=== PATIENT | female | born 1960 | race African-American/Black ===

== ENCOUNTER 2018-05-25 09:55 | Emergency (ER) | payer OTHER, MEDICAID ==
[~2018-05-25] VITALS: Ht 149.9 cm; Wt 86.0 kg
[~2018-05-25 09:55] MED LIST: ACTOS; MAXIDE; METFORMIN; PROZAC
[2018-05-25] MEDS ORDERED: IBUPROFEN 600MG TABLET PO ONE (11:00)
[2018-05-25] MEDS ORDERED: METHOCARBAMOL 500MG TABLET PO ONE (11:00)
[2018-05-25 12:29] VITALS: BP 168/98
== END 2018-05-25 12:31 | disposition home or self-care (01) ==
LOC: ER 09:55
DX: S22.31XA Fracture of one rib, right side, initial encounter for closed fracture (principal); I10 Essential (primary) hypertension; F32.9 Major depressive disorder, single episode, unspecified; F41.9 Anxiety disorder, unspecified; E11.9 Type 2 diabetes mellitus without complications; Z98.890 Other specified postprocedural states; Y93.B1 Activity, exercise machines primarily for muscle strengthening; Y92.89 Other specified places as the place of occurrence of the external cause
CPT/HCPCS: 71101; 99283

== ENCOUNTER 2019-01-18 09:48 | Emergency (ER) | payer OTHER, MEDICAID ==
[~2019-01-18] VITALS: Ht 149.9 cm; Wt 83.0 kg
[2019-01-18] MEDS ORDERED: ONDANSETRON 4MG ODT PO STA (10:30)
[2019-01-18] MEDS ORDERED: FAMOTIDINE 20MG TABLET PO ONE (10:30)
[2019-01-18] MEDS ORDERED: MAGNESIUM/ALUMINUM HYDROXIDE/SIMETHICONE 30ML UDC PO STA (10:30)
[2019-01-18 11:02] LABS: CLARITY URINE CLOUDY (CLEAR); COLOR URINE YELLOW (YELLOW); KETONES URINE NEGATIVE (NEGATIVE); LEUKOCYTE ESTERASE URINE 1+ (NEGATIVE); NITRITE URINE NEGATIVE (NEGATIVE); OCCULT BLOOD URINE NEGATIVE (NEGATIVE); PROTEIN URINE TRACE (NEGATIVE); SPECIFIC GRAVITY URINE 1.016 (1.005-1.030); UROBILINOGEN URINE 0.2 E.U./dL (0.2-1.0)
[2019-01-18] MEDS ORDERED: FLUCONAZOLE 50MG TABLET PO ONE (11:30)
[2019-01-18] MEDS ORDERED: CEPHALEXIN 250MG CAPSULE PO ONE (11:30)
[2019-01-18 12:00] LABS: BASOPHILS % 0.7 % (0.0-2.0); EOSINOPHILS % 1.8 % (0.0-5.0); HEMATOCRIT. 37.5 % (36.0-48.0); HEMOGLOBIN. 12.8 g/dL (12.0-16.0); LYMPHOCYTES % 47.3 % (20.0-50.0); MEAN CORPUSCULAR HEMOGLOBIN 30.3 pg (28.0-32.0); MEAN CORPUSCULAR VOLUME 88.8 fL (81.0-99.0); MEAN PLATELET VOLUME 8.3 fl (7.4-10.4); MONOCYTES % 5.1 % (2.0-8.0); NEUTROPHILS % 45.1 % (40.0-76.0); PLATELET 288 x1000/uL (130-400); RED BLOOD CELL COUNT 4.22 mill/uL (4.2-5.4); RED CELL DISTRIBUTION WIDTH 12.5 % (11.6-14.6)
[2019-01-18 12:08] LABS: CHLORIDE 101 mEq/L (98-107)
[2019-01-18 13:30] VITALS: BP 128/86
== END 2019-01-18 13:35 | disposition home or self-care (01) ==
LOC: ER 09:48
DX: N39.0 Urinary tract infection, site not specified (principal); B37.9 Candidiasis, unspecified; K21.9 Gastro-esophageal reflux disease without esophagitis; E11.9 Type 2 diabetes mellitus without complications; J44.9 Chronic obstructive pulmonary disease, unspecified; I10 Essential (primary) hypertension; F17.210 Nicotine dependence, cigarettes, uncomplicated; F41.9 Anxiety disorder, unspecified; Z98.890 Other specified postprocedural states; Z79.84 Long term (current) use of oral hypoglycemic drugs
CPT/HCPCS: 36415; 71045; 76700; 80053; 81003; 83690; 85025; 93005; 99284; Q0162

== ENCOUNTER 2020-04-07 06:44 | Emergency (ER) | payer OTHER, MEDICAID ==
[~2020-04-07] VITALS: Ht 149.9 cm; Wt 71.0 kg
[2020-04-07] MEDS ORDERED: SUCR1TAB PO (06:53)
[2020-04-07] MEDS ORDERED: DICY20TA11 PO (06:53)
[2020-04-07] MEDS ORDERED: SULF-288 PO (06:54)
[2020-04-07] MEDS ORDERED: MORPHINE SULFATE 4 MG/ML CPJ (NOT FOR IM USE) IV ONE (08:30)
[2020-04-07 08:51] LABS: BASOPHILS % 1.1 % (0.0-2.0); EOSINOPHILS % 2.3 % (0.0-5.0); HEMATOCRIT. 37.2 % (36.0-48.0); HEMOGLOBIN. 12.6 g/dL (12.0-16.0); LYMPHOCYTES % 45.8 % (20.0-50.0); MEAN CORPUSCULAR HEMOGLOBIN 30.1 pg (28.0-32.0); MEAN CORPUSCULAR VOLUME 88.9 fL (81.0-99.0); MEAN PLATELET VOLUME 8.8 fl (7.4-10.4); MONOCYTES % 7.7 % (2.0-8.0); NEUTROPHILS % 43.1 % (40.0-76.0); PLATELET 300 x1000/uL (130-400); RED BLOOD CELL COUNT 4.19 mill/uL (4.2-5.4); RED CELL DISTRIBUTION WIDTH 13.3 % (11.6-14.6)
[2020-04-07 08:53] LABS: CHLORIDE 100 mEq/L (98-107)
[2020-04-07 08:57] LABS: PROTHROMBIN TIME 10.8 sec (9.6-11.0)
[2020-04-07] MEDS ORDERED: T3 PO (10:02)
[2020-04-07 11:22] VITALS: BP 159/89
== END 2020-04-07 11:24 | disposition home or self-care (01) ==
LOC: ER 06:44
DX: R10.84 Generalized abdominal pain (principal); E11.9 Type 2 diabetes mellitus without complications; I10 Essential (primary) hypertension; J44.9 Chronic obstructive pulmonary disease, unspecified
CPT/HCPCS: 36415; 74176; 80053; 83690; 85025; 85610; 93005; 96374; 99285; J2270

== ENCOUNTER 2020-04-14 08:55 | Emergency (ER) | payer OTHER, MEDICAID ==
[~2020-04-14] VITALS: Ht 165.1 cm; Wt 72.6 kg
[~2020-04-14 08:55] MED LIST changes: +DICY20TA11 PO; +SUCR1TAB PO; +SULF-288 PO; +T3 PO
[2020-04-14] MEDS ORDERED: MAGNESIUM/ALUMINUM HYDROXIDE/SIMETHICONE 30ML UDC PO STA (09:13)
[2020-04-14] MEDS ORDERED: DICYCLOMINE 10 MG/5 ML ORAL SYR PO STA (09:13)
[2020-04-14] MEDS ORDERED: VISCOUS LIDOCAINE 2% 15 ML UDC PO STA (09:13)
[2020-04-14 09:37] LABS: CHLORIDE 97 mEq/L (98-107)
[2020-04-14 09:40] LABS: PROTHROMBIN TIME 10.5 sec (9.6-11.0)
[2020-04-14 09:44] LABS: BASOPHILS % 0.6 % (0.0-2.0); EOSINOPHILS % 1.1 % (0.0-5.0); HEMATOCRIT. 40.3 % (36.0-48.0); HEMOGLOBIN. 13.8 g/dL (12.0-16.0); LYMPHOCYTES % 55.3 % (20.0-50.0); MEAN CORPUSCULAR HEMOGLOBIN 30.4 pg (28.0-32.0); MEAN PLATELET VOLUME 8.8 fl (7.4-10.4); MONOCYTES % 5.6 % (2.0-8.0); NEUTROPHILS % 37.4 % (40.0-76.0); PLATELET 336 x1000/uL (130-400); RED BLOOD CELL COUNT 4.52 mill/uL (4.2-5.4); RED CELL DISTRIBUTION WIDTH 13.4 % (11.6-14.6)
[2020-04-14 10:00] LABS: CLARITY URINE CLEAR (CLEAR); COLOR URINE DARK YELLOW (YELLOW); KETONES URINE 1+ (NEGATIVE); LEUKOCYTE ESTERASE URINE NEGATIVE (NEGATIVE); NITRITE URINE NEGATIVE (NEGATIVE); OCCULT BLOOD URINE NEGATIVE (NEGATIVE); PH URINE 7.5 (4.5-8.0); PROTEIN URINE 4+ (NEGATIVE); SPECIFIC GRAVITY URINE 1.038 (1.005-1.030)
[2020-04-14] MEDS ORDERED: ACETAMINOPHEN WITH CODEINE 300/30MG TABLET PO ONE (10:30)
[2020-04-14 10:51] VITALS: BP 198/118
[2020-04-14] MEDS ORDERED: T3 PO (11:59)
== END 2020-04-14 12:25 | disposition home or self-care (01) ==
LOC: ER 08:55
DX: R10.13 Epigastric pain (principal); R10.11 Right upper quadrant pain; I10 Essential (primary) hypertension; E11.8 Type 2 diabetes mellitus with unspecified complications; K25.9 Gastric ulcer, unspecified as acute or chronic, without hemorrhage or perforation; N28.1 Cyst of kidney, acquired; Z79.4 Long term (current) use of insulin
CPT/HCPCS: 36415; 74021; 80053; 81003; 85025; 93005; 99285

== ENCOUNTER 2020-04-20 08:11 | Emergency (ER) | payer OTHER, MEDICAID ==
[~2020-04-20] VITALS: Ht 157.5 cm; Wt 64.0 kg
[2020-04-20] MEDS ORDERED: DICYCLOMINE 10 MG/5 ML ORAL SYR PO STA (09:33)
[2020-04-20] MEDS ORDERED: MAGNESIUM/ALUMINUM HYDROXIDE/SIMETHICONE 30ML UDC PO STA (09:33)
[2020-04-20] MEDS ORDERED: VISCOUS LIDOCAINE 2% 15 ML UDC PO STA (09:33)
[2020-04-20 10:16] LABS: BASOPHILS % 0.5 % (0.0-2.0); EOSINOPHILS % 0.6 % (0.0-5.0); HEMATOCRIT. 38.2 % (36.0-48.0); HEMOGLOBIN. 13.1 g/dL (12.0-16.0); LYMPHOCYTES % 52.9 % (20.0-50.0); MEAN CORPUSCULAR HEMOGLOBIN 30.4 pg (28.0-32.0); MEAN PLATELET VOLUME 8.6 fl (7.4-10.4); MONOCYTES % 5.7 % (2.0-8.0); NEUTROPHILS % 40.3 % (40.0-76.0); PLATELET 323 x1000/uL (130-400); RED CELL DISTRIBUTION WIDTH 13.5 % (11.6-14.6)
[2020-04-20 10:24] LABS: CHLORIDE 99 mEq/L (98-107)
[2020-04-20 10:26] LABS: PROTHROMBIN TIME 10.5 sec (9.6-11.0)
[2020-04-20] MEDS ORDERED: FAMOTIDINE 20MG/2ML VIAL IV ONE (11:15)
[2020-04-20] MEDS ORDERED: PANTOPRAZOLE SODIUM 40 MG/VIAL IV ONE (11:15)
[2020-04-20 11:18] LABS: CLARITY URINE CLEAR (CLEAR); COLOR URINE YELLOW (YELLOW); KETONES URINE NEGATIVE (NEGATIVE); LEUKOCYTE ESTERASE URINE NEGATIVE (NEGATIVE); NITRITE URINE NEGATIVE (NEGATIVE); OCCULT BLOOD URINE NEGATIVE (NEGATIVE); PH URINE 6.5 (4.5-8.0); PROTEIN URINE 3+ (NEGATIVE); SPECIFIC GRAVITY URINE 1.012 (1.005-1.030); UROBILINOGEN URINE 0.2 E.U./dL (0.2-1.0)
[2020-04-20] MEDS ORDERED: OMEP20CA14 MT (12:33)
[2020-04-20 13:01] VITALS: BP 174/95
== END 2020-04-20 13:02 | disposition home or self-care (01) ==
LOC: ER 08:22
DX: R10.11 Right upper quadrant pain (principal); F41.9 Anxiety disorder, unspecified; J44.9 Chronic obstructive pulmonary disease, unspecified; F32.9 Major depressive disorder, single episode, unspecified; E11.9 Type 2 diabetes mellitus without complications; K21.9 Gastro-esophageal reflux disease without esophagitis; I10 Essential (primary) hypertension; Z98.890 Other specified postprocedural states; Z79.899 Other long term (current) drug therapy
CPT/HCPCS: 36415; 76705; 80053; 81003; 83690; 85025; 85610; 93005; 96374; 99285; C9113

== ENCOUNTER 2020-05-08 21:29 | Emergency (ER) | payer OTHER, MEDICAID ==
[~2020-05-08] VITALS: Ht 165.1 cm; Wt 75.0 kg
[~2020-05-08 21:29] MED LIST changes: +OMEP20CA14 MT
[2020-05-08 22:31] LABS: BASOPHILS % 0.5 % (0.0-2.0); EOSINOPHILS % 1.1 % (0.0-5.0); HEMATOCRIT. 36.3 % (36.0-48.0); HEMOGLOBIN. 12.3 g/dL (12.0-16.0); LYMPHOCYTES % 55.8 % (20.0-50.0); MEAN CORPUSCULAR HEMOGLOBIN 30.2 pg (28.0-32.0); MEAN CORPUSCULAR VOLUME 89.1 fL (81.0-99.0); MEAN PLATELET VOLUME 7.9 fl (7.4-10.4); MONOCYTES % 7.5 % (2.0-8.0); NEUTROPHILS % 35.1 % (40.0-76.0); PLATELET 348 x1000/uL (130-400); RED BLOOD CELL COUNT 4.08 mill/uL (4.2-5.4); RED CELL DISTRIBUTION WIDTH 13.4 % (11.6-14.6)
[2020-05-08 22:43] LABS: CHLORIDE 92 mEq/L (98-107)
[2020-05-08 22:45] LABS: PROTHROMBIN TIME 10.6 sec (9.6-11.0)
[2020-05-08] MEDS ORDERED: MORPHINE SULFATE 4 MG/ML CPJ (NOT FOR IM USE) IV ONE (22:45)
[2020-05-08] MEDS ORDERED: POTASSIUM CHLORIDE 20MEQ TABLET SR PO ONE (23:30)
[2020-05-08] MEDS ORDERED: IOHEXOL-300 100 ML BOTTLE ONE (23:55)
[2020-05-09 00:16] LABS: CLARITY URINE CLEAR (CLEAR); COLOR URINE YELLOW (YELLOW); KETONES URINE NEGATIVE (NEGATIVE); LEUKOCYTE ESTERASE URINE NEGATIVE (NEGATIVE); NITRITE URINE NEGATIVE (NEGATIVE); OCCULT BLOOD URINE NEGATIVE (NEGATIVE); PH URINE 8.5 (4.5-8.0); PROTEIN URINE 2+ (NEGATIVE); SPECIFIC GRAVITY URINE 1.024 (1.005-1.030); UROBILINOGEN URINE 0.2 E.U./dL (0.2-1.0)
[2020-05-09 01:40] VITALS: BP 202/106
== END 2020-05-09 01:41 | disposition home or self-care (01) ==
LOC: ER 21:29
DX: E87.6 Hypokalemia (principal); G89.29 Other chronic pain; R10.9 Unspecified abdominal pain; J44.1 Chronic obstructive pulmonary disease with (acute) exacerbation; I10 Essential (primary) hypertension; E11.9 Type 2 diabetes mellitus without complications; Z91.14 Patient's other noncompliance with medication regimen; Z79.899 Other long term (current) drug therapy
CPT/HCPCS: 36415; 74177; 80053; 83690; 85025; 85610; 93005; 96374; 99285; J2270; Q9967

== ENCOUNTER 2020-05-27 17:45 | Emergency (ER) | payer OTHER, MEDICAID ==
[~2020-05-27] VITALS: Ht 165.1 cm; Wt 76.0 kg
[2020-05-27 18:55] LABS: BASOPHILS % 0.6 % (0.0-2.0); EOSINOPHILS % 0.3 % (0.0-5.0); HEMATOCRIT. 39.3 % (36.0-48.0); HEMOGLOBIN. 13.3 g/dL (12.0-16.0); MEAN CORPUSCULAR HEMOGLOBIN 30.7 pg (28.0-32.0); MEAN CORPUSCULAR VOLUME 90.6 fL (81.0-99.0); MEAN PLATELET VOLUME 7.6 fl (7.4-10.4); MONOCYTES % 7.4 % (2.0-8.0); NEUTROPHILS % 53.7 % (40.0-76.0); PLATELET 454 x1000/uL (130-400); RED BLOOD CELL COUNT 4.34 mill/uL (4.2-5.4); RED CELL DISTRIBUTION WIDTH 13.7 % (11.6-14.6)
[2020-05-27 19:00] LABS: CHLORIDE 98 mEq/L (98-107)
[2020-05-27] MEDS ORDERED: SODIUM CHLORIDE 0.9% 1,000 ML IV ONE (19:15)
[2020-05-27] MEDS ORDERED: POTASSIUM CHLORIDE 20MEQ TABLET SR PO ONE (22:00)
[2020-05-28] VITALS: BP 116/61
== END 2020-05-27 23:48 | disposition home or self-care (01) ==
LOC: ER 17:45
DX: R55 Syncope and collapse (principal); E11.649 Type 2 diabetes mellitus with hypoglycemia without coma; I10 Essential (primary) hypertension; Z88.6 Allergy status to analgesic agent; Z79.899 Other long term (current) drug therapy; Z98.890 Other specified postprocedural states
CPT/HCPCS: 36415; 70450; 71045; 80053; 82962; 84484; 85025; 85379; 93005; 96360; 99285; J7030

== ENCOUNTER 2020-06-14 10:15 | Emergency (ER) | payer OTHER, MEDICAID ==
[~2020-06-14] VITALS: Ht 165.1 cm; Wt 73.0 kg
[2020-06-14] MEDS ORDERED: MORPHINE SULFATE 4 MG/ML CPJ (NOT FOR IM USE) IV STA (10:50)
[2020-06-14] MEDS ORDERED: ONDANSETRON HCL 4MG/2ML INJ IV STA (10:50)
[2020-06-14] MEDS ORDERED: SODIUM CHLORIDE 0.9% 1,000 ML IV ONE (11:00)
[2020-06-14 11:42] LABS: CLARITY URINE CLOUDY (CLEAR); COLOR URINE YELLOW (YELLOW); KETONES URINE TRACE (NEGATIVE); LEUKOCYTE ESTERASE URINE TRACE (NEGATIVE); NITRITE URINE NEGATIVE (NEGATIVE); OCCULT BLOOD URINE NEGATIVE (NEGATIVE); PH URINE 5.5 (4.5-8.0); PROTEIN URINE 3+ (NEGATIVE); SPECIFIC GRAVITY URINE 1.021 (1.005-1.030)
[2020-06-14 11:54] LABS: BASOPHILS % 0.5 % (0.0-2.0); EOSINOPHILS % 0.3 % (0.0-5.0); HEMATOCRIT. 37.1 % (36.0-48.0); HEMOGLOBIN. 12.7 g/dL (12.0-16.0); LYMPHOCYTES % 50.7 % (20.0-50.0); MEAN CORPUSCULAR HEMOGLOBIN 31.4 pg (28.0-32.0); MONOCYTES % 6.8 % (2.0-8.0); NEUTROPHILS % 41.7 % (40.0-76.0); PLATELET 371 x1000/uL (130-400); RED BLOOD CELL COUNT 4.03 mill/uL (4.2-5.4); RED CELL DISTRIBUTION WIDTH 14.5 % (11.6-14.6)
[2020-06-14 12:00] LABS: CHLORIDE 97 mEq/L (98-107)
[2020-06-14 12:02] LABS: PARTIAL THROMBOPLASTIN TIME 24.8 sec (23.4-31.0); PROTHROMBIN TIME 10.8 sec (9.6-11.0)
[2020-06-14 13:12] VITALS: BP 176/87
[2020-06-14] MEDS ORDERED: FAMO-135 PO (13:50)
[2020-06-14] MEDS ORDERED: TOPUD MT (13:50)
[2020-06-14] MEDS ORDERED: IOHEXOL-300 100 ML BOTTLE ONE (15:10)
== END 2020-06-14 14:29 | disposition home or self-care (01) ==
LOC: ER 10:15
DX: R10.31 Right lower quadrant pain (principal); E11.9 Type 2 diabetes mellitus without complications; I10 Essential (primary) hypertension; Z98.890 Other specified postprocedural states; Z88.6 Allergy status to analgesic agent
CPT/HCPCS: 36415; 71045; 74177; 80053; 81003; 83690; 85025; 85610; 85730; 96361; 96374; 96375; 99285; J2270; J2405; J7030; Q9967

== ENCOUNTER 2020-06-20 07:26 | Inpatient (IN) | payer OTHER, MEDICAID ==
[~2020-06-20] VITALS: Ht 157.5 cm; Wt 63.0 kg
[~2020-06-20 07:26] MED LIST changes: +FAMO-135 PO; +TOPUD MT
[2020-06-20] MEDS ORDERED: FAMOTIDINE 20MG/2ML VIAL IV STA (07:44)
[2020-06-20] MEDS ORDERED: ONDANSETRON HCL 4MG/2ML INJ IV STA (07:44)
[2020-06-20] MEDS ORDERED: MORPHINE SULFATE 4 MG/ML CPJ (NOT FOR IM USE) IV STA (07:44)
[2020-06-20 07:45] VITALS: BP 139/93
[2020-06-20] MEDS ORDERED: SODIUM CHLORIDE 0.9% 1,000 ML IV ONE (07:45)
[2020-06-20 08:01] LABS: BASOPHILS % 0.3 % (0.0-2.0); EOSINOPHILS % 0.4 % (0.0-5.0); HEMATOCRIT. 36.3 % (36.0-48.0); HEMOGLOBIN. 12.5 g/dL (12.0-16.0); LYMPHOCYTES % 48.1 % (20.0-50.0); MEAN CORPUSCULAR HEMOGLOBIN 31.2 pg (28.0-32.0); MEAN CORPUSCULAR VOLUME 90.8 fL (81.0-99.0); MEAN PLATELET VOLUME 7.7 fl (7.4-10.4); MONOCYTES % 7.5 % (2.0-8.0); NEUTROPHILS % 43.7 % (40.0-76.0); PLATELET 350 x1000/uL (130-400); RED CELL DISTRIBUTION WIDTH 14.1 % (11.6-14.6)
[2020-06-20 08:08] LABS: PROTHROMBIN TIME 10.9 sec (9.6-11.0)
[2020-06-20 08:10] LABS: CHLORIDE 86 mEq/L (98-107)
[2020-06-20 08:15] LABS: ETHANOL BLOOD < 10 mg/dL
[2020-06-20 08:52] LABS: CLARITY URINE TURBID (CLEAR); COLOR URINE YELLOW (YELLOW); KETONES URINE NEGATIVE (NEGATIVE); LEUKOCYTE ESTERASE URINE 2+ (NEGATIVE); NITRITE URINE NEGATIVE (NEGATIVE); OCCULT BLOOD URINE 1+ (NEGATIVE); PROTEIN URINE 3+ (NEGATIVE); SPECIFIC GRAVITY URINE 1.015 (1.005-1.030)
[2020-06-20 09:20] LABS: *BENZODIAZEPINES SCREEN URINE NEGATIVE (NEGATIVE); *COCAINE SCREEN URINE NEGATIVE (NEGATIVE)
[2020-06-20 09:21] LABS: *AMPHETAMINES SCREEN URINE PRESUMTIVE POSITIVE (NEGATIVE); *BARBITURATES SCREEN URINE NEGATIVE (NEGATIVE); CANNABINOID URINE SCREEN PRESUMTIVE POSITIVE (NEGATIVE); METHADONE URINE SCREEN NEGATIVE (NEGATIVE); OPIATES URINE SCREEN NEGATIVE (NEGATIVE); PHENCYCLIDINE URINE SCREEN NEGATIVE (NEGATIVE)
[2020-06-20] MEDS ORDERED: CEFTRIAXONE 1 G PREMIX 50 ML IV ONE (09:30)
[2020-06-20] MEDS ORDERED: MORPHINE SULFATE 2 MG/ML CPJ (NOT FOR IM USE) IV NR (11:15)
[2020-06-20] MEDS ORDERED: HYDRALAZINE 20MG/ML VIAL IV NR (11:15)
[2020-06-20 19:45] VITALS: BP 139/93
[2020-06-20 20:00] VITALS: BP 139/93
[2020-06-20] MEDS ORDERED: ONDANSETRON HCL 4MG/2ML INJ IV PRN (20:45)
[2020-06-20] MEDS ORDERED: CEFTRIAXONE 1 G PREMIX 50 ML IV SCH (20:45)
[2020-06-20] MEDS ORDERED: DEXTROSE 50% WATER 50ML SYRINGE IV PRN (20:45)
[2020-06-20] MEDS ORDERED: KETOROLAC 15MG/ML VIAL IV PRN (20:45)
[2020-06-20] MEDS: INSULIN LISPRO 100 UNITS/ML SUBCUT SCH (21:00)
[2020-06-20] MEDS ORDERED: HEPARIN 5000 UNITS/ML VIAL SUBCUT SCH (21:00)
[2020-06-20] MEDS: BLOOD SUGAR DIAGNOSTIC STRIP TEST SCH (21:07)
[2020-06-20] MEDS: FAMOTIDINE 20MG/2ML VIAL IV SCH (21:25)
[2020-06-20] MEDS: SUCRALFATE 1 G/10 ML UDC PO SCH (21:38)
[2020-06-20] MEDS ORDERED: DEXT 5%/0.45% NACL KCL 20MEQ/L 1,000 ML IV SCH (22:00)
[2020-06-20] MEDS: SODIUM CHLORIDE 0.9% 1,000 ML IV SCH (23:21)
[2020-06-21] VITALS: BP 159/98
[2020-06-21] MEDS: MORPHINE SULFATE 2 MG/ML CPJ (NOT FOR IM USE) IV PRN ×6 (01:01→21:24)
[2020-06-21 04:00] VITALS: BP 178/93
[2020-06-21] MEDS: SUCRALFATE 1 G/10 ML UDC PO SCH ×4 (06:47→21:16)
[2020-06-21 06:49] LABS: CHLORIDE 97 mEq/L (98-107)
[2020-06-21] MEDS: BLOOD SUGAR DIAGNOSTIC STRIP TEST SCH ×4 (06:49→21:17)
[2020-06-21 06:58] LABS: LDL CHOLESTEROL 119 mg/dL (5-100)
[2020-06-21 07:00] LABS: HDL CHOLESTEROL 68 mg/dL (40-59)
[2020-06-21 07:10] LABS: BASOPHILS % 0.6 % (0.0-2.0); EOSINOPHILS % 0.9 % (0.0-5.0); HEMATOCRIT. 34.4 % (36.0-48.0); LYMPHOCYTES % 62.1 % (20.0-50.0); MEAN CORPUSCULAR HEMOGLOBIN 31.9 pg (28.0-32.0); MEAN CORPUSCULAR VOLUME 91.2 fL (81.0-99.0); MEAN PLATELET VOLUME 8.3 fl (7.4-10.4); MONOCYTES % 7.4 % (2.0-8.0); PLATELET 333 x1000/uL (130-400); RED BLOOD CELL COUNT 3.77 mill/uL (4.2-5.4); RED CELL DISTRIBUTION WIDTH 14.2 % (11.6-14.6)
[2020-06-21] MEDS ORDERED: HYDRALAZINE 20MG/ML VIAL IV PRN (07:30)
[2020-06-21] MEDS: INSULIN LISPRO 100 UNITS/ML SUBCUT SCH ×4 (07:59→21:00)
[2020-06-21 08:03] VITALS: BP 183/103
[2020-06-21] MEDS: SODIUM CHLORIDE 0.9% 1,000 ML IV SCH ×2 (08:37→16:36)
[2020-06-21] MEDS: CEFTRIAXONE 1,000 MG in DEXTROSE 5% WATER 50 ML IV SCH (08:38)
[2020-06-21] MEDS: AMLODIPINE 10MG TABLET PO SCH (08:57)
[2020-06-21 12:18] VITALS: BP 180/98
[2020-06-21 16:19] VITALS: BP 160/81
[2020-06-21 20:00] VITALS: BP 146/82
[2020-06-21] MEDS: FAMOTIDINE 20MG/2ML VIAL IV SCH (21:16)
[2020-06-22] VITALS: BP 128/65
[2020-06-22] MEDS: MORPHINE SULFATE 2 MG/ML CPJ (NOT FOR IM USE) IV PRN ×4 (01:36→14:31)
[2020-06-22 04:00] VITALS: BP 108/68
[2020-06-22] MEDS: SODIUM CHLORIDE 0.9% 1,000 ML IV SCH ×2 (04:15→06:05)
[2020-06-22] MEDS: SUCRALFATE 1 G/10 ML UDC PO SCH ×3 (06:05→16:51)
[2020-06-22 06:14] LABS: BASOPHILS % 0.6 % (0.0-2.0); HEMOGLOBIN. 11.5 g/dL (12.0-16.0); LYMPHOCYTES % 59.9 % (20.0-50.0); MEAN CORPUSCULAR HEMOGLOBIN 32.3 pg (28.0-32.0); MEAN CORPUSCULAR VOLUME 92.6 fL (81.0-99.0); MONOCYTES % 9.4 % (2.0-8.0); NEUTROPHILS % 29.1 % (40.0-76.0); PLATELET 339 x1000/uL (130-400); RED BLOOD CELL COUNT 3.57 mill/uL (4.2-5.4); RED CELL DISTRIBUTION WIDTH 14.4 % (11.6-14.6)
[2020-06-22 06:34] LABS: CHLORIDE 104 mEq/L (98-107)
[2020-06-22] MEDS: BLOOD SUGAR DIAGNOSTIC STRIP TEST SCH ×3 (06:51→16:51)
[2020-06-22] MEDS: INSULIN LISPRO 100 UNITS/ML SUBCUT SCH ×4 (07:50→17:01)
[2020-06-22 07:58] VITALS: BP 175/97
[2020-06-22] MEDS: AMLODIPINE 10MG TABLET PO SCH (08:37)
[2020-06-22] MEDS: CEFTRIAXONE 1,000 MG in DEXTROSE 5% WATER 50 ML IV SCH (08:37)
[2020-06-22] MEDS ORDERED: MAGNESIUM 2 G PREMIX 50 ML IV NR (10:30)
[2020-06-22 11:54] VITALS: BP 146/92
[2020-06-22 16:27] VITALS: BP 144/75
[2020-06-22 16:45] VITALS: BP 144/76
== END 2020-06-22 18:30 | disposition home or self-care (01) | DRG 690 ==
LOC: ER 07:34 → EDBEDREQ 08:50 → 6WST 10:00 → EDBEDREQTM 10:05 → EDBEDREQ 10:05 → ENRESERV 18:08
PROVIDERS: ADMIT Internal Medicine; ATTEND Internal Medicine
DX: N39.0 Urinary tract infection, site not specified (principal); E87.1 Hypo-osmolality and hyponatremia; B19.10 Unspecified viral hepatitis B without hepatic coma; K29.70 Gastritis, unspecified, without bleeding; E11.43 Type 2 diabetes mellitus with diabetic autonomic (poly)neuropathy; E11.65 Type 2 diabetes mellitus with hyperglycemia; F15.10 Other stimulant abuse, uncomplicated; I10 Essential (primary) hypertension; E83.42 Hypomagnesemia; F43.10 Post-traumatic stress disorder, unspecified; F32.9 Major depressive disorder, single episode, unspecified; K31.84 Gastroparesis; B19.20 Unspecified viral hepatitis C without hepatic coma; K76.0 Fatty (change of) liver, not elsewhere classified; K82.8 Other specified diseases of gallbladder; K44.9 Diaphragmatic hernia without obstruction or gangrene; N20.0 Calculus of kidney; F12.90 Cannabis use, unspecified, uncomplicated; I25.10 Atherosclerotic heart disease of native coronary artery without angina pectoris; R74.01 Elevation of levels of liver transaminase levels; E86.0 Dehydration; Z87.19 Personal history of other diseases of the digestive system; Z82.49 Family history of ischemic heart disease and other diseases of the circulatory system; Z98.891 History of uterine scar from previous surgery; Z72.0 Tobacco use
CPT/HCPCS: 36415; 71045; 74176; 76705; 80048; 80053; 80061; 80076; 80305; 80320; 81003; 82962; 83036; 83735; 84484; 85025; 93005; 99285; A6261; J0360; J0696; J1644; J1815; J1885; J2270; J2405; J3475; J3490; J7030; J7060; G0480

== ENCOUNTER 2020-08-23 16:44 | Emergency (ER) | payer OTHER, MEDICAID ==
[~2020-08-23] VITALS: Ht 162.6 cm; Wt 55.0 kg
[2020-08-23 18:12] LABS: BASOPHILS % 1.2 % (0.0-2.0); EOSINOPHILS % 0.9 % (0.0-5.0); HEMATOCRIT. 31.1 % (36.0-48.0); HEMOGLOBIN. 11.2 g/dL (12.0-16.0); LYMPHOCYTES % 60.1 % (20.0-50.0); MEAN CORPUSCULAR HEMOGLOBIN 33.2 pg (28.0-32.0); MEAN CORPUSCULAR VOLUME 92.1 fL (81.0-99.0); MONOCYTES % 6.6 % (2.0-8.0); NEUTROPHILS % 31.2 % (40.0-76.0); PLATELET 313 x1000/uL (130-400); RED BLOOD CELL COUNT 3.37 mill/uL (4.2-5.4); RED CELL DISTRIBUTION WIDTH 13.1 % (11.6-14.6)
[2020-08-23 18:18] LABS: CHLORIDE 106 mEq/L (98-107)
[2020-08-23] MEDS ORDERED: ASPIRIN 81MG TABLET PO ONE (18:45)
[2020-08-23] MEDS ORDERED: SODIUM CHLORIDE 0.9% 1,000 ML IV ONE (18:45)
[2020-08-23] MEDS ORDERED: ACETAMINOPHEN 325MG TABLET PO ONE (20:30)
[2020-08-23 20:31] LABS: CLARITY URINE CLEAR (CLEAR); COLOR URINE YELLOW (YELLOW); KETONES URINE NEGATIVE (NEGATIVE); LEUKOCYTE ESTERASE URINE NEGATIVE (NEGATIVE); NITRITE URINE NEGATIVE (NEGATIVE); OCCULT BLOOD URINE NEGATIVE (NEGATIVE); PH URINE 5.5 (4.5-8.0); PROTEIN URINE TRACE (NEGATIVE); SPECIFIC GRAVITY URINE 1.011 (1.005-1.030); UROBILINOGEN URINE 0.2 E.U./dL (0.2-1.0)
[2020-08-23] MEDS ORDERED: HYDROCORTISONE 1% CREAM 30GM TOP PRN (22:00)
[2020-08-24 07:20] VITALS: BP 142/82
== END 2020-08-24 09:09 | disposition left against medical advice (07) ==
LOC: ER 16:44 → ENRESERV 08-24 08:21 → CANRESERV 08-24 08:21 → CANBEDREQ 08-24 09:07 → ER 08-24 09:09
DX: R42 Dizziness and giddiness (principal); R55 Syncope and collapse; R29.6 Repeated falls; E11.9 Type 2 diabetes mellitus without complications; I10 Essential (primary) hypertension; Z88.6 Allergy status to analgesic agent; Z79.899 Other long term (current) drug therapy; Z98.890 Other specified postprocedural states
CPT/HCPCS: 36415; 70450; 71045; 80053; 81003; 83880; 84484; 85025; 87086; 93005; 96360; 96361; 99285; J7030

== ENCOUNTER 2022-09-15 11:21 | Inpatient (IN) | payer BC, MEDICAID ==
[~2022-09-15] VITALS: Ht 154.9 cm; Wt 71.7 kg
[~2022-09-15 11:21] MED LIST changes: -DICY20TA11 PO; +DICY20TA2 PO; +SULF-13 PO; -SULF-288 PO
[2022-09-15 11:23] VITALS: O2SAT 100
[2022-09-15 12:05] LABS: BASOPHILS % 0.6 % (0.0-2.0); EOSINOPHILS % 1.6 % (0.0-5.0); HEMATOCRIT. 31.7 % (36.0-48.0); HEMOGLOBIN. 10.7 g/dL (12.0-16.0); LYMPHOCYTES % 44.9 % (20.0-50.0); MEAN CORPUSCULAR HEMOGLOBIN 30.6 pg (28.0-32.0); MEAN CORPUSCULAR VOLUME 90.3 fL (81.0-99.0); MEAN PLATELET VOLUME 8.8 fl (7.4-10.4); MONOCYTES % 6.9 % (2.0-8.0); PLATELET 245 x1000/uL (130-400); RED BLOOD CELL COUNT 3.51 mill/uL (4.2-5.4); RED CELL DISTRIBUTION WIDTH 13.7 % (11.6-14.6)
[2022-09-15 12:13] LABS: CHLORIDE 111 mEq/L (98-107)
[2022-09-15 12:22] LABS: ETHANOL BLOOD < 10 mg/dL (-10)
[2022-09-15] MEDS ORDERED: MECLIZINE 25MG TABLET PO ONE (12:30)
[2022-09-15] MEDS ORDERED: SODIUM CHLORIDE 0.9% 1,000 ML IV ONE (12:30)
[2022-09-15] MEDS ORDERED: MECLIZINE 12.5MG TABLET PO NR (13:15)
[2022-09-15] MEDS ORDERED: MECLIZINE 25MG TABLET PO NR (13:15)
[2022-09-15] MEDS ORDERED: HYDRALAZINE 20MG/ML VIAL IV ONE (14:15)
[2022-09-15] MEDS ORDERED: HYDRALAZINE 20MG/ML VIAL IV NR (15:30)
[2022-09-15 15:33] LABS: CLARITY URINE CLEAR (CLEAR); COLOR URINE YELLOW (YELLOW); KETONES URINE NEGATIVE (NEGATIVE); LEUKOCYTE ESTERASE URINE NEGATIVE (NEGATIVE); NITRITE URINE NEGATIVE (NEGATIVE); OCCULT BLOOD URINE TRACE (NEGATIVE); PH URINE 5.5 (4.5-8.0); PROTEIN URINE 3+ (NEGATIVE); SPECIFIC GRAVITY URINE 1.009 (1.005-1.030); UROBILINOGEN URINE 0.2 E.U./dL (0.2-1.0)
[2022-09-15 15:45] LABS: *AMPHETAMINES SCREEN URINE NEGATIVE (NEGATIVE); *BARBITURATES SCREEN URINE NEGATIVE (NEGATIVE); *BENZODIAZEPINES SCREEN URINE NEGATIVE (NEGATIVE); *COCAINE SCREEN URINE NEGATIVE (NEGATIVE); CANNABINOID URINE SCREEN NEGATIVE (NEGATIVE); METHADONE URINE SCREEN NEGATIVE (NEGATIVE); OPIATES URINE SCREEN NEGATIVE (NEGATIVE); PHENCYCLIDINE URINE SCREEN NEGATIVE (NEGATIVE)
[2022-09-15] MEDS ORDERED: AMLODIPINE 10MG TABLET PO SCH (16:45)
[2022-09-15] MEDS ORDERED: IPRATROPIUM/ALBUTEROL 0.5-3(2.5)MG/3ML NEB HHN PRN (16:45)
[2022-09-15] MEDS ORDERED: MECLIZINE 25MG TABLET PO PRN (16:45)
[2022-09-15] MEDS ORDERED: DEXTROSE 50% WATER 50ML SYRINGE IV PRN (16:45)
[2022-09-15] MEDS ORDERED: CLONIDINE 0.1MG TABLET PO PRN (16:45)
[2022-09-15] MEDS ORDERED: ACETAMINOPHEN 325MG TABLET PO PRN (16:45)
[2022-09-15] MEDS ORDERED: ONDANSETRON HCL 4MG/2ML INJ IV PRN (16:45)
[2022-09-15] MEDS: BLOOD SUGAR DIAGNOSTIC STRIP TEST SCH ×2 (17:00→21:26)
[2022-09-15] MEDS: INSULIN LISPRO 100 UNITS/ML SUBCUT SCH ×2 (18:20→21:00)
[2022-09-15] MEDS ORDERED: HYDRALAZINE 20MG/ML VIAL IV PRN (20:15)
[2022-09-15] MEDS: CLONIDINE 0.1MG TABLET PO SCH (21:54)
[2022-09-15] MEDS: HYDRALAZINE HCL 100MG TABLET PO SCH (21:58)
[2022-09-15] MEDS ORDERED: HYDRALAZINE HCL 50MG TABLET PO SCH (22:00)
[2022-09-15] MEDS: ACETAMINOPHEN 325MG TABLET PO PRN (23:17)
[2022-09-15 23:45] VITALS: BP 147/74; PULSE 95; RESP 16; TEMP 97.6
[2022-09-16 04:00] VITALS: BP 140/72; PULSE 90; RESP 20; TEMP 98.1
[2022-09-16] MEDS: CLONIDINE 0.1MG TABLET PO SCH ×3 (06:52→21:32)
[2022-09-16] MEDS: HYDRALAZINE HCL 100MG TABLET PO SCH ×3 (06:52→21:32)
[2022-09-16] MEDS: INSULIN LISPRO 100 UNITS/ML SUBCUT SCH ×5 (06:53→21:33)
[2022-09-16] MEDS: BLOOD SUGAR DIAGNOSTIC STRIP TEST SCH ×4 (06:53→21:31)
[2022-09-16 08:00] VITALS: BP 150/88; PULSE 101; RESP 18; TEMP 97.5
[2022-09-16] MEDS: AMLODIPINE 10MG TABLET PO SCH (10:19)
[2022-09-16 11:07] LABS: BASOPHILS % 0.6 % (0.0-2.0); EOSINOPHILS % 2.1 % (0.0-5.0); HEMATOCRIT. 29.8 % (36.0-48.0); HEMOGLOBIN. 10.1 g/dL (12.0-16.0); LYMPHOCYTES % 46.2 % (20.0-50.0); MEAN CORPUSCULAR HEMOGLOBIN 30.6 pg (28.0-32.0); MEAN CORPUSCULAR VOLUME 90.3 fL (81.0-99.0); MEAN PLATELET VOLUME 9.1 fl (7.4-10.4); MONOCYTES % 7.4 % (2.0-8.0); NEUTROPHILS % 43.7 % (40.0-76.0); PLATELET 228 x1000/uL (130-400); RED CELL DISTRIBUTION WIDTH 13.9 % (11.6-14.6)
[2022-09-16 11:24] LABS: CHLORIDE 115 mEq/L (98-107)
[2022-09-16 11:35] VITALS: BP 128/76; PULSE 76; RESP 20; TEMP 96.6
[2022-09-16 16:30] VITALS: BP 128/76; PULSE 94; RESP 18; TEMP 97.6
[2022-09-16 20:00] VITALS: BP 143/81; PULSE 89; RESP 20; TEMP 98.1
[2022-09-16] MEDS: ACETAMINOPHEN 325MG TABLET PO PRN (21:31)
[2022-09-17] VITALS (20 sets, daily range): BP systolic 113–176; BP diastolic 56–79; PULSE 70–95; RESP 14–22; TEMP 97.5–98.6
[2022-09-17] MEDS: CLONIDINE 0.1MG TABLET PO SCH ×3 (05:25→21:24)
[2022-09-17] MEDS: HYDRALAZINE HCL 100MG TABLET PO SCH ×3 (05:25→21:24)
[2022-09-17] MEDS: BLOOD SUGAR DIAGNOSTIC STRIP TEST SCH ×4 (07:10→21:21)
[2022-09-17] MEDS: INSULIN LISPRO 100 UNITS/ML SUBCUT SCH ×4 (07:40→21:00)
[2022-09-17] MEDS: AMLODIPINE 10MG TABLET PO SCH (09:02)
[2022-09-17] MEDS: DOCUSATE SODIUM 100MG CAPSULE PO PRN (09:04)
[2022-09-17 14:12] LABS: PARTIAL THROMBOPLASTIN TIME 30.4 sec (23.4-31.0)
[2022-09-17] MEDS ORDERED: FENTANYL CITRATE/PF 50MCG/ML 2ML VIAL IV NR (14:30)
[2022-09-17] MEDS ORDERED: CEFAZOLIN SODIUM 1000MG/VIAL IM NR (14:30)
[2022-09-17] MEDS ORDERED: LIDOCAINE HCL 1% 10 MG/ML 10ML VIAL ONE (14:38)
[2022-09-17] MEDS ORDERED: CEFAZOLIN 1000MG PREMIX 50 ML IV SCH (15:00)
[2022-09-17] MEDS ORDERED: MIDAZOLAM HCL 2 MG/2 ML VIAL ONE (15:09)
[2022-09-17] MEDS ORDERED: MIDAZOLAM HCL 2 MG/2 ML VIAL IV NR (15:15)
[2022-09-18] VITALS: BP 117/56; PULSE 80; RESP 17; TEMP 97.8
[2022-09-18 04:00] VITALS: BP 123/57; PULSE 80; RESP 17; TEMP 97.9
[2022-09-18] MEDS: HYDRALAZINE HCL 100MG TABLET PO SCH ×3 (06:16→22:00)
[2022-09-18] MEDS: CLONIDINE 0.1MG TABLET PO SCH ×3 (06:17→22:00)
[2022-09-18] MEDS: BLOOD SUGAR DIAGNOSTIC STRIP TEST SCH ×4 (06:17→20:44)
[2022-09-18] MEDS: INSULIN LISPRO 100 UNITS/ML SUBCUT SCH ×4 (06:19→20:44)
[2022-09-18 08:00] VITALS: BP 124/61; PULSE 63; RESP 18; TEMP 98.1
[2022-09-18] MEDS: ACETAMINOPHEN 325MG TABLET PO PRN ×2 (08:36→14:30)
[2022-09-18] MEDS: AMLODIPINE 10MG TABLET PO SCH (08:36)
[2022-09-18 12:00] VITALS: BP 108/69; PULSE 71; RESP 18; TEMP 98.1
[2022-09-18 16:00] VITALS: BP 122/60; PULSE 78; RESP 20; TEMP 98
[2022-09-18 17:12] LABS: HEPATITIS B SURFACE ANTIGEN NEGATIVE
[2022-09-18 20:00] VITALS: BP 128/65; PULSE 74; RESP 18; TEMP 97.9
[2022-09-18] MEDS: DOCUSATE SODIUM 100MG CAPSULE PO PRN (20:45)
[2022-09-19] VITALS (7 sets, daily range): BP systolic 126–157; BP diastolic 58–76; PULSE 75–88; RESP 16–20; TEMP 97.1–97.8
[2022-09-19] MEDS: BLOOD SUGAR DIAGNOSTIC STRIP TEST SCH ×4 (06:07→20:48)
[2022-09-19] MEDS: CLONIDINE 0.1MG TABLET PO SCH ×3 (06:07→20:49)
[2022-09-19] MEDS: HYDRALAZINE HCL 100MG TABLET PO SCH ×3 (06:07→20:50)
[2022-09-19] MEDS: INSULIN LISPRO 100 UNITS/ML SUBCUT SCH ×4 (08:24→20:48)
[2022-09-19] MEDS: DOCUSATE SODIUM 100MG CAPSULE PO PRN ×2 (08:44→17:27)
[2022-09-19] MEDS: ACETAMINOPHEN 325MG TABLET PO PRN (11:27)
[2022-09-19] MEDS: AMLODIPINE 10MG TABLET PO SCH (17:27)
[2022-09-20] VITALS (7 sets, daily range): BP systolic 74–160; BP diastolic 55–70; PULSE 74–90; RESP 18; TEMP 97–98.4
[2022-09-20] MEDS: HYDRALAZINE HCL 100MG TABLET PO SCH ×3 (05:49→21:31)
[2022-09-20] MEDS: BLOOD SUGAR DIAGNOSTIC STRIP TEST SCH ×4 (05:49→21:00)
[2022-09-20] MEDS: CLONIDINE 0.1MG TABLET PO SCH ×3 (05:50→21:31)
[2022-09-20] MEDS: AMLODIPINE 10MG TABLET PO SCH (08:50)
[2022-09-20] MEDS: INSULIN LISPRO 100 UNITS/ML SUBCUT SCH ×4 (08:54→21:00)
[2022-09-20 12:26] LABS: BASOPHILS % 0.5 % (0.0-2.0); EOSINOPHILS % 1.7 % (0.0-5.0); HEMATOCRIT. 29.4 % (36.0-48.0); HEMOGLOBIN. 10.1 g/dL (12.0-16.0); LYMPHOCYTES % 33.1 % (20.0-50.0); MEAN CORPUSCULAR HEMOGLOBIN 31.2 pg (28.0-32.0); MEAN CORPUSCULAR VOLUME 90.7 fL (81.0-99.0); MEAN PLATELET VOLUME 9.2 fl (7.4-10.4); MONOCYTES % 6.1 % (2.0-8.0); NEUTROPHILS % 58.6 % (40.0-76.0); PLATELET 231 x1000/uL (130-400); RED BLOOD CELL COUNT 3.24 mill/uL (4.2-5.4); RED CELL DISTRIBUTION WIDTH 13.5 % (11.6-14.6)
[2022-09-20 14:20] LABS: HEPATITIS B SURFACE ANTIGEN NEGATIVE
[2022-09-21] VITALS (12 sets, daily range): BP systolic 110–154; BP diastolic 62–94; PULSE 72–100; RESP 16–20; TEMP 97.6–99.1
[2022-09-21] MEDS: CLONIDINE 0.1MG TABLET PO SCH ×3 (06:28→21:35)
[2022-09-21] MEDS: HYDRALAZINE HCL 100MG TABLET PO SCH ×3 (06:28→21:34)
[2022-09-21] MEDS: BLOOD SUGAR DIAGNOSTIC STRIP TEST SCH ×4 (06:34→21:00)
[2022-09-21] MEDS: INSULIN LISPRO 100 UNITS/ML SUBCUT SCH ×4 (07:40→21:36)
[2022-09-21] MEDS: AMLODIPINE 10MG TABLET PO SCH ×2 (08:46→09:52)
[2022-09-21 09:15] LABS: BASOPHILS % 0.7 % (0.0-2.0); EOSINOPHILS % 2.6 % (0.0-5.0); LYMPHOCYTES % 42.8 % (20.0-50.0); MEAN CORPUSCULAR HEMOGLOBIN 31.1 pg (28.0-32.0); MEAN CORPUSCULAR VOLUME 90.1 fL (81.0-99.0); MONOCYTES % 8.7 % (2.0-8.0); NEUTROPHILS % 45.2 % (40.0-76.0); PLATELET 182 x1000/uL (130-400); RED BLOOD CELL COUNT 2.73 mill/uL (4.2-5.4); RED CELL DISTRIBUTION WIDTH 13.3 % (11.6-14.6)
[2022-09-21 09:18] LABS: HEMOGLOBIN. 8.5 g/dL (12.0-16.0)
[2022-09-21 09:19] LABS: HEMATOCRIT. 24.6 % (36.0-48.0)
[2022-09-21] MEDS: ACETAMINOPHEN 325MG TABLET PO PRN ×2 (09:53→21:37)
[2022-09-21] MEDS: DOCUSATE SODIUM 100MG CAPSULE PO PRN (13:12)
[2022-09-21 19:02] LABS: PHOSPHORUS 3.3 mg/dL (2.5-4.9)
[2022-09-21] MEDS ORDERED: EPOETIN ALFA-EPBX 4,000 UNIT/ML VIAL SUBCUT SCH (21:00)
[2022-09-21] MEDS ORDERED: EPOETIN ALFA 4000UNITS/ML VIAL SUBCUT SCH (21:00)
[2022-09-22] VITALS: BP 113/58; PULSE 70; RESP 18; TEMP 98
[2022-09-22] MEDS ORDERED: MAGNESIUM 1 G PREMIX 100 ML IV NR (02:00)
[2022-09-22 04:00] VITALS: BP 140/57; PULSE 82; RESP 18; TEMP 98
[2022-09-22] MEDS: HYDRALAZINE HCL 100MG TABLET PO SCH ×4 (06:00→21:01)
[2022-09-22] MEDS: CLONIDINE 0.1MG TABLET PO SCH ×4 (06:00→21:01)
[2022-09-22] MEDS: BLOOD SUGAR DIAGNOSTIC STRIP TEST SCH ×4 (06:08→21:00)
[2022-09-22] MEDS: INSULIN LISPRO 100 UNITS/ML SUBCUT SCH ×4 (06:08→21:00)
[2022-09-22 08:00] VITALS: BP 158/57; PULSE 77; RESP 20; TEMP 98.5
[2022-09-22] MEDS: AMLODIPINE 10MG TABLET PO SCH (09:17)
[2022-09-22 11:54] LABS: BASOPHILS % 0.9 % (0.0-2.0); EOSINOPHILS % 2.3 % (0.0-5.0); HEMATOCRIT. 26.9 % (36.0-48.0); HEMOGLOBIN. 9.2 g/dL (12.0-16.0); LYMPHOCYTES % 38.8 % (20.0-50.0); MEAN CORPUSCULAR HEMOGLOBIN 30.9 pg (28.0-32.0); MEAN CORPUSCULAR VOLUME 90.3 fL (81.0-99.0); MEAN PLATELET VOLUME 9.3 fl (7.4-10.4); MONOCYTES % 8.9 % (2.0-8.0); NEUTROPHILS % 49.1 % (40.0-76.0); PLATELET 203 x1000/uL (130-400); RED BLOOD CELL COUNT 2.97 mill/uL (4.2-5.4); RED CELL DISTRIBUTION WIDTH 13.4 % (11.6-14.6)
[2022-09-22 12:00] VITALS: BP 157/79; PULSE 87; RESP 20; TEMP 98.1
[2022-09-22 16:00] VITALS: BP 132/67; PULSE 81; RESP 20; TEMP 98.2
[2022-09-22] MEDS: DOCUSATE SODIUM 100MG CAPSULE PO PRN (16:36)
== END 2022-09-22 21:00 | disposition home or self-care (01) | DRG 674 ==
LOC: ER 13:01 → 8WST 14:15 → EDBEDREQTM 14:18 → EDBEDREQ 14:18 → ENRESERV 20:34
PROVIDERS: ADMIT Internal Medicine; ATTEND Internal Medicine
PROC: 0JH63XZ Insertion of Tunneled Vascular Access Device into Chest Subcutaneous Tissue and Fascia, Percutaneous Approach (ICD-10-PCS; principal; 2022-09-17)
PROC: 02HV33Z Insertion of Infusion Device into Superior Vena Cava, Percutaneous Approach (ICD-10-PCS; 2022-09-17)
PROC: B548ZZA Ultrasonography of Superior Vena Cava, Guidance (ICD-10-PCS; 2022-09-17)
PROC: B5181ZA Fluoroscopy of Superior Vena Cava using Low Osmolar Contrast, Guidance (ICD-10-PCS; 2022-09-17)
PROC: 5A1D70Z Performance of Urinary Filtration, Intermittent, Less than 6 Hours Per Day (ICD-10-PCS; 2022-09-17)
PROC: 5A1D70Z Performance of Urinary Filtration, Intermittent, Less than 6 Hours Per Day (ICD-10-PCS; 2022-09-19)
PROC: 5A1D70Z Performance of Urinary Filtration, Intermittent, Less than 6 Hours Per Day (ICD-10-PCS; 2022-09-21)
DX: N17.9 Acute kidney failure, unspecified (principal); I12.0 Hypertensive chronic kidney disease with stage 5 chronic kidney disease or end stage renal disease; N18.6 End stage renal disease; I16.0 Hypertensive urgency; E11.22 Type 2 diabetes mellitus with diabetic chronic kidney disease; Z20.822 Contact with and (suspected) exposure to COVID-19; E66.9 Obesity, unspecified; N18.9 Chronic kidney disease, unspecified; G90.8 Other disorders of autonomic nervous system; D63.1 Anemia in chronic kidney disease; Z99.2 Dependence on renal dialysis; Z79.899 Other long term (current) drug therapy; Z68.29 Body mass index [BMI] 29.0-29.9, adult
CPT/HCPCS: 36415; 36558; 71045; 76770; 76937; 77001; 80048; 80053; 80305; 80320; 81003; 82962; 83036; 83735; 84100; 84484; 85025; 85379; 86705; 86706; 86709; 86803; 87340; 87426; 90935; 93005; 93880; 93970; 99152; 99153; 99291; C1750; C1769; C1887; J0360; J0690; J0885; J1642; J1815; J2250; J2405; J3010; J3475; J3490; J7030; J8597; G0480; G0500

== ENCOUNTER 2022-10-19 13:09 | Emergency (ER) | payer BC, MEDICAID ==
[~2022-10-19] VITALS: Ht 167.6 cm; Wt 82.0 kg
[~2022-10-19 13:09] MED LIST changes: -ACTOS; +AMLO10TA80 PO; -DICY20TA2 PO; +DOCU-150 PO; +FLUT1BLS3 IH; +LISI-649 PO; -MAXIDE; +METF-414 PO; -METFORMIN; -PROZAC; +SOLI5TAB7 PO; -SULF-13 PO
[2022-10-19 13:24] VITALS: O2SAT 100
[2022-10-19] MEDS ORDERED: PIPERACILLIN/TAZ 3.375G PREMIX 50 ML IV ONE (13:45)
[2022-10-19] MEDS ORDERED: SODIUM CHLORIDE 0.9% 1000ML BAG (SEPSIS BOLUS) IV ONE (13:45)
[2022-10-19] MEDS ORDERED: ACETAMINOPHEN 325MG TABLET PO ONE (13:45)
[2022-10-19] MEDS ORDERED: VANCOMYCIN 1G PREMIX 200 ML IV ONE (13:45)
[2022-10-19] MEDS ORDERED: CLONIDINE 0.2MG TABLET PO ONE (14:00)
[2022-10-19 14:14] LABS: HEMATOCRIT. 27.9 % (36.0-48.0); HEMOGLOBIN. 9.4 g/dL (12.0-16.0); MEAN CORPUSCULAR HEMOGLOBIN 30.5 pg (28.0-32.0); MEAN CORPUSCULAR HGB CONC 33.7 g/dL (31.0-37.0); MEAN CORPUSCULAR VOLUME 90.5 fL (81.0-99.0); MEAN PLATELET VOLUME 8.6 fl (7.4-10.4); PLATELET 269 x1000/uL (130-400); RED BLOOD CELL COUNT 3.08 mill/uL (4.2-5.4); RED CELL DISTRIBUTION WIDTH 13.2 % (11.6-14.6); WHITE BLOOD COUNT 9.1 x1000/uL (4.5-11.0)
[2022-10-19 14:20] LABS: DIFFERENTIAL COMMENT 1
[2022-10-19 14:23] LABS: CHLORIDE 99 mEq/L (98-107); INDEX HEMOLYSI 2 (1-3); INDEX ICTERIC 1 (1-4); INDEX LIPEMIC 1 (1-3); SODIUM 136 mEq/L (136-145)
[2022-10-19 14:25] LABS: PROTHROMBIN TIME 10.8 sec (9.6-11.0)
[2022-10-19 14:26] LABS: POTASSIUM 2.8 mEq/L (3.5-5.1)
[2022-10-19 14:32] LABS: ALANINE AMINOTRANSFERASE 27 IU/L (13-61); ALBUMIN 2.6 g/dL (3.4-5.0); ASPARTATE AMINOTRANSFERASE 26 IU/L (15-37); BILIRUBIN TOTAL 0.6 mg/dL (0.1-1.0); CALCIUM 8.2 mg/dL (8.5-10.1); CARBON DIOXIDE 29 mEq/L (21-32); CREATININE 3.2 mg/dL (0.6-1.3); NT PRO B-TYPE NATRIURETIC PEP 5944 pg/mL (5-125); PROTEIN TOTAL 6.2 g/dL (6.0-8.3); TROPONIN I HIGH SENSITIVITY 10 ng/L (<54); UREA NITROGEN BLOOD 20 mg/dL (7-21)
[2022-10-19 14:44] LABS: GLUCOSE 107 mg/dL (70-105)
[2022-10-19 14:54] LABS: PLATELET ESTIMATE NORMAL
[2022-10-19] MEDS ORDERED: CLONIDINE 0.2MG TABLET PO NR (15:00)
[2022-10-19] MEDS ORDERED: MAGNESIUM OXIDE 400MG TABLET PO STA (15:32)
[2022-10-19] MEDS ORDERED: POTASSIUM CHLORIDE 20MEQ TABLET SR PO ONE (15:45)
[2022-10-19 16:26] LABS: TROPONIN I HIGH SENSITIVITY 18 ng/L (<54)
[2022-10-19 17:13] VITALS: BP 170/79; PULSE 81; RESP 17; TEMP 99.3
== END 2022-10-19 17:14 | disposition left against medical advice (07) ==
LOC: ER 13:31
DX: E11.22 Type 2 diabetes mellitus with diabetic chronic kidney disease (principal); I12.0 Hypertensive chronic kidney disease with stage 5 chronic kidney disease or end stage renal disease; N18.6 End stage renal disease; R50.9 Fever, unspecified; E87.6 Hypokalemia; Z88.6 Allergy status to analgesic agent; Z20.822 Contact with and (suspected) exposure to COVID-19
CPT/HCPCS: 99285; 96365; 70450; 71045; 87426; 80053; 83880; 83605; 83735; 85025; 85610; 87040; 84484; 36415; 84145; 93005; 96368; J2543; J3370; J7030; C9803

== ENCOUNTER 2024-08-09 05:07 | Inpatient (IN) | payer BC, MEDICAID, MEDICARE ==
[~2024-08-09] VITALS: Ht 149.9 cm; Wt 66.7 kg
[2024-08-09] VITALS (15 sets, daily range): BP systolic 123–196; BP diastolic 55–97; PULSE 74–100; RESP 18–31; TEMP 36.4–37.2; O2SAT 96–100
[~2024-08-09 05:07] MED LIST changes: +CEFA2PLA9 IV; -DOCU-150 PO; -FAMO-135 PO; +HYDR100T11 MT; +LINA5TAB PO; -METF-414 PO; -OMEP20CA14 MT; -SOLI5TAB7 PO; -SUCR1TAB PO
[2024-08-09 05:43] LABS: BASOPHILS % 0.6 % (0.0-2.0); EOSINOPHILS % 0.5 % (0.0-5.0); HEMATOCRIT. 32.8 % (36.0-48.0); HEMOGLOBIN. 11.1 g/dL (12.0-16.0); LYMPHOCYTES % 10.4 % (20.0-50.0); MEAN CORPUSCULAR HEMOGLOBIN 30.2 pg (28.0-32.0); MEAN CORPUSCULAR HGB CONC 33.8 g/dL (31.0-37.0); MEAN CORPUSCULAR VOLUME 89.1 fL (81.0-99.0); MEAN PLATELET VOLUME 7.9 fl (7.4-10.4); MONOCYTES % 5.4 % (2.0-8.0); NEUTROPHILS % 83.1 % (40.0-76.0); PLATELET 274 x1000/uL (130-400); RED BLOOD CELL COUNT 3.68 mill/uL (4.2-5.4); RED CELL DISTRIBUTION WIDTH 14.3 % (11.6-14.6); WHITE BLOOD COUNT 9.2 x1000/uL (4.5-11.0)
[2024-08-09 05:47] LABS: BG BASE EXCESS -1.4 mmol/L (-2.0-3.0); BG CARBOXYHEMOGLOBIN 0.8 % (0.5-1.5); BG FRACTION INSPIRED OXYGEN 100; BG HCO3 ACT 24.2 mmol/L (21.0-28.0); BG METHEMOGLOBIN 0.2 % (0.5-1.5); BG PCO2 44.4 mmHg (32.0-45.0); BG PH 7.355 (7.350-7.450); BG PO2 410.9 mmHg (83.0-108.0); BG SAMPLE SITE RIGHT RADIAL; BG VENT MODE MASK - BIPAP
[2024-08-09 06:00] LABS: CHLORIDE 95 mEq/L (98-107)
[2024-08-09 06:01] LABS: CARBON DIOXIDE 24 mEq/L (21-32); POTASSIUM 4.9 mEq/L (3.5-5.1); SODIUM 134 mEq/L (136-145)
[2024-08-09 06:02] LABS: CALCIUM 9.3 mg/dL (8.7-10.4)
[2024-08-09 06:06] LABS: GLUCOSE 153 mg/dL (70-105)
[2024-08-09 06:07] LABS: UREA NITROGEN BLOOD 63 mg/dL (9-23)
[2024-08-09 06:16] LABS: CREATININE 8.3 mg/dL (0.6-1.0); TROPONIN I HIGH SENSITIVITY 52 ng/L (3.0-34)
[2024-08-09 08:42] LABS: TROPONIN I HIGH SENSITIVITY 59 ng/L (3.0-34)
[2024-08-09] MEDS ORDERED: ACETAMINOPHEN 325MG TABLET PO PRN (11:45)
[2024-08-09] MEDS ORDERED: ACETAMINOPHEN 650MG SUPP PR PRN (12:45)
[2024-08-09] MEDS: AMLODIPINE 10MG TABLET PO SCH (12:50)
[2024-08-09] MEDS: HYDRALAZINE HCL 100MG TABLET PO SCH (12:50)
[2024-08-09] MEDS: ACETAMINOPHEN WITH CODEINE 300/30MG TABLET PO PRN (12:51)
[2024-08-09] MEDS ORDERED: NALOXONE HCL 0.4MG/ML VIAL IV PRN (13:00)
[2024-08-09] MEDS: IPRATROPIUM/ALBUTEROL 0.5-3(2.5)MG/3ML NEB HHN SCH (15:50)
[2024-08-09 23:02] LABS: HEPATITIS B SURFACE ANTIGEN NEGATIVE (Negative)
[2024-08-09 23:11] LABS: TROPONIN I HIGH SENSITIVITY 81 ng/L (3.0-34)
[2024-08-09 23:22] LABS: HEPATITIS A AB IGM NEGATIVE (Negative)
[2024-08-09 23:23] LABS: HEPATITIS B CORE AB IGM REACTIVE (Negative)
[2024-08-09 23:26] LABS: HEPATITIS C AB REACTIVE (Pos) (Negative)
[2024-08-10] VITALS (21 sets, daily range): BP systolic 118–155; BP diastolic 56–101; PULSE 85–107; RESP 9–24; TEMP 36.44736–37.4; O2SAT 82–100
[2024-08-10] MEDS: BLOOD SUGAR DIAGNOSTIC STRIP TEST SCH (07:30)
[2024-08-10] MEDS: INSULIN LISPRO 100 UNITS/ML SUBCUT SCH (08:00)
[2024-08-10 08:33] LABS: TROPONIN I HIGH SENSITIVITY 73 ng/L (3.0-34)
[2024-08-10] MEDS: DEXTROSE 50% WATER 50ML SYRINGE IV PRN (08:44)
[2024-08-11] VITALS (22 sets, daily range): BP systolic 122–173; BP diastolic 56–90; PULSE 73–90; RESP 13–21; TEMP 36.28068–37; O2SAT 95–100
[2024-08-11] MEDS: CLONIDINE 0.1MG TABLET PO PRN (05:36)
[2024-08-11] MEDS: FLUCONAZOLE 150MG TABLET PO SCH (09:55)
== END 2024-08-11 20:55 | disposition home or self-care (01) | DRG 291 ==
LOC: ER 05:07 → EDBEDREQ 05:24 → 5EST 08:36 → EDBEDREQ 08:45 → EDBEDREQTM 08:45
PROVIDERS: ADMIT Internal Medicine; ATTEND Internal Medicine
PROC: 5A09357 Assistance with Respiratory Ventilation, Less than 24 Consecutive Hours, Continuous Positive Airway Pressure (ICD-10-PCS; principal; 2024-08-09)
PROC: 5A1D70Z Performance of Urinary Filtration, Intermittent, Less than 6 Hours Per Day (ICD-10-PCS; 2024-08-09)
PROC: 5A1D70Z Performance of Urinary Filtration, Intermittent, Less than 6 Hours Per Day (ICD-10-PCS; 2024-08-10)
PROC: 5A1D70Z Performance of Urinary Filtration, Intermittent, Less than 6 Hours Per Day (ICD-10-PCS; 2024-08-11)
DX: I13.2 Hypertensive heart and chronic kidney disease with heart failure and with stage 5 chronic kidney disease, or end stage renal disease (principal); J96.20 Acute and chronic respiratory failure, unspecified whether with hypoxia or hypercapnia; N18.6 End stage renal disease; J44.1 Chronic obstructive pulmonary disease with (acute) exacerbation; I50.9 Heart failure, unspecified; K29.70 Gastritis, unspecified, without bleeding; E11.22 Type 2 diabetes mellitus with diabetic chronic kidney disease; D63.8 Anemia in other chronic diseases classified elsewhere; K21.9 Gastro-esophageal reflux disease without esophagitis; G89.29 Other chronic pain; R10.84 Generalized abdominal pain; Z99.2 Dependence on renal dialysis; Z91.158 Patient's noncompliance with renal dialysis for other reason; Z91.148 Patient's other noncompliance with medication regimen for other reason
CPT/HCPCS: 36415; 36600; 71045; 80048; 82375; 82805; 82962; 83880; 84484; 85025; 86705; 86709; 87340; 90935; 93005; 93880; 94070; 94640; 94660; 94664; 98960; 99291; A4606

== ENCOUNTER 2024-09-17 10:06 | Emergency (ER) | payer BC, MEDICAID ==
[~2024-09-17] VITALS: Ht 162.6 cm; Wt 83.0 kg
[~2024-09-17 10:06] MED LIST changes: -CEFA2PLA9 IV; -T3 PO
[2024-09-17 10:09] VITALS: O2SAT 100
[2024-09-17 10:28] LABS: BASOPHILS % 0.7 % (0.0-2.0); EOSINOPHILS % 1.4 % (0.0-5.0); HEMATOCRIT. 38.8 % (36.0-48.0); HEMOGLOBIN. 12.7 g/dL (12.0-16.0); LYMPHOCYTES % 33.2 % (20.0-50.0); MEAN PLATELET VOLUME 7.7 fl (7.4-10.4); MONOCYTES % 5.2 % (2.0-8.0); NEUTROPHILS % 59.5 % (40.0-76.0); PLATELET 289 x1000/uL (130-400); RED BLOOD CELL COUNT 4.32 mill/uL (4.2-5.4); RED CELL DISTRIBUTION WIDTH 16.5 % (11.6-14.6)
[2024-09-17 10:42] LABS: UREA NITROGEN BLOOD 85.0 mg/dL (9-23)
[2024-09-17 10:50] LABS: CREATININE 10.1 mg/dL (0.6-1.0)
[2024-09-17] MEDS: ACETAMINOPHEN 325MG TABLET PO SCH (11:55)
[2024-09-17] MEDS ORDERED: IBUP-2030 PO (13:04)
[2024-09-17 13:18] VITALS: BP 147/60; PULSE 77; RESP 14; TEMP 37.2; O2SAT 100
== END 2024-09-17 13:19 | disposition home or self-care (01) ==
LOC: ER 10:06
DX: D25.9 Leiomyoma of uterus, unspecified (principal); N95.0 Postmenopausal bleeding; E11.22 Type 2 diabetes mellitus with diabetic chronic kidney disease; I12.0 Hypertensive chronic kidney disease with stage 5 chronic kidney disease or end stage renal disease; J44.9 Chronic obstructive pulmonary disease, unspecified; N18.6 End stage renal disease; Z79.1 Long term (current) use of non-steroidal anti-inflammatories (NSAID); Z79.899 Other long term (current) drug therapy; Z87.440 Personal history of urinary (tract) infections; Z87.891 Personal history of nicotine dependence; Z99.2 Dependence on renal dialysis
CPT/HCPCS: 36415; 76830; 76856; 80048; 85025; 99284

== ENCOUNTER 2024-11-15 05:58 | Inpatient (IN) | payer BC, MEDICAID, MEDICARE ==
[2024-11-15] VITALS (29 sets, daily range): BP systolic 154–190; BP diastolic 55–151; PULSE 73–98; RESP 16–29; TEMP 36.50292–37; O2SAT 96–100
[~2024-11-15] VITALS: Ht 152.4 cm; Wt 67.1 kg
[~2024-11-15 05:58] MED LIST changes: +IBUP-2030 PO
[2024-11-15] MEDS: ALBUTEROL (0.083%) 2.5MG/3ML NEB HHN SCH (06:17)
[2024-11-15] MEDS: IPRATROPIUM BROMIDE (0.02%) 0.5MG/2.5ML NEB HHN SCH (06:17)
[2024-11-15] MEDS: METHYLPREDNISOLONE SOD SUCC 125MG/2ML (ACT-O-VIAL) IV ONE (06:22)
[2024-11-15 06:48] LABS: BASOPHILS % 0.6 % (0.0-2.0); EOSINOPHILS % 0.6 % (0.0-5.0); HEMATOCRIT. 26.8 % (36.0-48.0); HEMOGLOBIN. 9.0 g/dL (12.0-16.0); LYMPHOCYTES % 24.7 % (20.0-50.0); MEAN PLATELET VOLUME 8.4 fl (7.4-10.4); MONOCYTES % 6.9 % (2.0-8.0); NEUTROPHILS % 67.2 % (40.0-76.0); PLATELET 206 x1000/uL (130-400); RED BLOOD CELL COUNT 3.03 mill/uL (4.2-5.4); RED CELL DISTRIBUTION WIDTH 15.4 % (11.6-14.6)
[2024-11-15 06:55] LABS: UREA NITROGEN BLOOD 50 mg/dL (9-23)
[2024-11-15 06:59] LABS: TROPONIN I HIGH SENSITIVITY 130 ng/L (3.0-34)
[2024-11-15 07:00] LABS: CREATININE 8.4 mg/dL (0.6-1.0)
[2024-11-15] MEDS ORDERED: ENALAPRIL 2.5MG/2ML VIAL 2ML IV ONE (07:30)
[2024-11-15] MEDS: FUROSEMIDE 40MG/4ML VIAL IVP ONE (07:45)
[2024-11-15] MEDS ORDERED: ONDANSETRON HCL 4MG/2ML INJ IV PRN (08:15)
[2024-11-15] MEDS ORDERED: ACETAMINOPHEN 325MG TABLET PO PRN ×2 (08:15)
[2024-11-15] MEDS ORDERED: DOCUSATE SODIUM 100MG CAPSULE PO PRN (08:15)
[2024-11-15] MEDS ORDERED: AMLO5TAB88 PO (08:40)
[2024-11-15] MEDS ORDERED: CLON0.2T PO (08:40)
[2024-11-15] MEDS: ENALAPRIL 1.25MG/ML VIAL 1ML IV SCH (08:47)
[2024-11-15 09:09] LABS: INR 1.0
[2024-11-15] MEDS ORDERED: CEFEPIME 1GM IN DEXT 5% 50ML IV SCH (09:15)
[2024-11-15 09:16] LABS: ASPARTATE AMINOTRANSFERASE 20 IU/L (<34); BILIRUBIN DIRECT 0.1 mg/dL (<=3.0); BILIRUBIN TOTAL 0.3 mg/dL (0.1-1.0); PHOSPHORUS 7.0 mg/dL (2.5-4.9); PROTEIN TOTAL 6.7 g/dL (6.0-8.3)
[2024-11-15] MEDS: BUDESONIDE 0.5MG/2ML NEB HHN SCH (09:19)
[2024-11-15] MEDS: IPRATROPIUM/ALBUTEROL 0.5-3(2.5)MG/3ML NEB HHN PRN (09:20)
[2024-11-15 09:21] LABS: BG BASE EXCESS -0.1 mmol/L (-2.0-3.0); BG CARBOXYHEMOGLOBIN 0.7 % (0.5-1.5); BG DEOXYHEMOGLOBIN 1.8 % (0.0-5.0); BG FRACTION INSPIRED OXYGEN 40; BG HCO3 ACT 24.6 mmol/L (21.0-28.0); BG METHEMOGLOBIN 0.0 % (0.5-1.5); BG OXYGEN SATURATION 98.2 % (94.0-98.0); BG OXYHEMOGLOBIN 97.5 % (94.0-98.0); BG PCO2 40.2 mmHg (32.0-45.0); BG PH 7.405 (7.350-7.450); BG PO2 110.8 mmHg (83.0-108.0); BG SAMPLE SITE RIGHT BRACHIAL; BG TOTAL HEMOGLOBIN 9.3 g/dL (12.0-16.0); BG VENT RATE 16.0 set
[2024-11-15 09:21] LABS: ETHANOL BLOOD < 10 mg/dL (<10)
[2024-11-15] MEDS: FAMOTIDINE 20MG/2ML VIAL IV NR (10:36)
[2024-11-15] MEDS: METHYLPREDNISOLONE SOD SUCC 40MG/ML (ACT-O-VIAL) IV SCH (10:36)
[2024-11-15] MEDS: AMLODIPINE 5MG TABLET PO SCH (10:36)
[2024-11-15] MEDS: DOXYCYCLINE 100MG/100ML 100 ML IV SCH ×2 (11:43→21:36)
[2024-11-15] MEDS: CEFEPIME 2GM/100ML 100 ML IV SCH (11:43)
[2024-11-15] MEDS: IPRATROPIUM/ALBUTEROL 0.5-3(2.5)MG/3ML NEB HHN SCH (12:30)
[2024-11-15] MEDS: TRAMADOL 50MG TABLET PO PRN (14:54)
[2024-11-15] MEDS: CLONIDINE 0.1MG TABLET PO PRN (14:58)
[2024-11-15 19:11] LABS: CREATINE KINASE MB FRACTION 3.2 ng/mL (0.5-3.6)
[2024-11-15 19:23] LABS: TROPONIN I HIGH SENSITIVITY 91.0 ng/L (3.0-34)
[2024-11-15 19:45] LABS: HEPATITIS A AB IGM NEGATIVE (Negative)
[2024-11-15 19:46] LABS: HEPATITIS B CORE AB IGM REACTIVE (Negative)
[2024-11-15 19:49] LABS: HEPATITIS C AB REACTIVE (Pos) (Negative)
[2024-11-16] VITALS (17 sets, daily range): BP systolic 109–179; BP diastolic 67–130; PULSE 72–130; RESP 14–22; TEMP 36.3–36.8; O2SAT 96–100
[2024-11-16 07:14] LABS: PLATELET 207 x1000/uL (130-400); RED BLOOD CELL COUNT 3.05 mill/uL (4.2-5.4); RED CELL DISTRIBUTION WIDTH 15.5 % (11.6-14.6)
[2024-11-16 07:53] LABS: CREATINE KINASE MB FRACTION 2.7 ng/mL (0.5-3.6)
[2024-11-16 07:57] LABS: T4 FREE 1.25 ng/dL (0.89-1.76)
[2024-11-16 07:58] LABS: TRIGLYCERIDE 66 mg/dL (0-150); UREA NITROGEN BLOOD 35 mg/dL (9-23)
[2024-11-16 07:59] LABS: LDL CHOLESTEROL 68 mg/dL (5-100)
[2024-11-16 08:00] LABS: PHOSPHORUS 4.7 mg/dL (2.5-4.9)
[2024-11-16 08:14] LABS: CREATININE 6.2 mg/dL (0.6-1.0); TROPONIN I HIGH SENSITIVITY 90 ng/L (3.0-34)
[2024-11-16] MEDS ORDERED: NALOXONE HCL 0.4MG/ML VIAL IV PRN (08:30)
[2024-11-16] MEDS: FUROSEMIDE 40MG/4ML VIAL IVP SCH (09:00)
[2024-11-16] MEDS ORDERED: FAMOTIDINE 20MG TABLET PO SCH (21:00)
== END 2024-11-16 16:49 | disposition left against medical advice (07) | DRG 280 ==
LOC: ER 05:58 → 5EST 07:22 → EDBEDREQ 07:26 → EDBEDREQTM 07:26 → ENRESERV 08:54
PROVIDERS: ADMIT Internal Medicine; ATTEND Internal Medicine
PROC: 5A1D70Z Performance of Urinary Filtration, Intermittent, Less than 6 Hours Per Day (ICD-10-PCS; principal; 2024-11-15)
PROC: 5A09357 Assistance with Respiratory Ventilation, Less than 24 Consecutive Hours, Continuous Positive Airway Pressure (ICD-10-PCS; 2024-11-15)
PROC: 5A1D70Z Performance of Urinary Filtration, Intermittent, Less than 6 Hours Per Day (ICD-10-PCS; 2024-11-16)
DX: I13.2 Hypertensive heart and chronic kidney disease with heart failure and with stage 5 chronic kidney disease, or end stage renal disease (principal); I50.33 Acute on chronic diastolic (congestive) heart failure; I21.A1 Myocardial infarction type 2; N18.6 End stage renal disease; J96.21 Acute and chronic respiratory failure with hypoxia; J44.1 Chronic obstructive pulmonary disease with (acute) exacerbation; E11.22 Type 2 diabetes mellitus with diabetic chronic kidney disease; D25.9 Leiomyoma of uterus, unspecified; Z53.21 Procedure and treatment not carried out due to patient leaving prior to being seen by health care provider; D63.8 Anemia in other chronic diseases classified elsewhere; I48.91 Unspecified atrial fibrillation; Z99.2 Dependence on renal dialysis; Z79.899 Other long term (current) drug therapy; Z87.891 Personal history of nicotine dependence
CPT/HCPCS: 36415; 36600; 71045; 80048; 80061; 80076; 80320; 82306; 82375; 82550; 82553; 82805; 83036; 83605; 83735; 83880; 83930; 84100; 84145; 84439; 84443; 84484; 85025; 85027; 85379; 86705; 86709; 87340; 90935; 93005; 93970; 94070; 94640; 94660; 96374; 99291; J0692; J1308; J1938; J2919; J3490; J7626; G0480

== ENCOUNTER 2025-01-18 08:13 | Inpatient (IN) | payer BC, MEDICAID ==
[~2025-01-18] VITALS: Ht 160 cm; Wt 59.2 kg
[2025-01-18 04:00] VITALS: BP 158/57; PULSE 67; RESP 15; TEMP 36.4; O2SAT 95
[~2025-01-18 08:13] MED LIST changes: -AMLO10TA80 PO; +AMLO5TAB88 PO; +CLON0.2T PO; -HYDR100T11 MT; -LISI-649 PO
[2025-01-18 09:12] LABS: BASOPHILS % 0.5 % (0.0-2.0); EOSINOPHILS % 2.0 % (0.0-5.0); HEMATOCRIT. 24.4 % (36.0-48.0); HEMOGLOBIN. 8.1 g/dL (12.0-16.0); LYMPHOCYTES % 19.5 % (20.0-50.0); MEAN PLATELET VOLUME 8.5 fl (7.4-10.4); MONOCYTES % 5.3 % (2.0-8.0); NEUTROPHILS % 72.7 % (40.0-76.0); PLATELET 270 x1000/uL (130-400); RED BLOOD CELL COUNT 2.61 mill/uL (4.2-5.4); RED CELL DISTRIBUTION WIDTH 15.8 % (11.6-14.6)
[2025-01-18] MEDS: KETOROLAC 15MG/ML VIAL IV ONE (09:21)
[2025-01-18] MEDS: NITROGLYCERIN 0.4MG TABLET SL SL ONE (09:23)
[2025-01-18 09:24] LABS: UREA NITROGEN BLOOD 62 mg/dL (9-23)
[2025-01-18 09:26] LABS: ASPARTATE AMINOTRANSFERASE 16 IU/L (<34); BILIRUBIN DIRECT 0.2 mg/dL (<=3.0)
[2025-01-18 09:27] LABS: BILIRUBIN TOTAL 0.3 mg/dL (0.1-1.0); PROTEIN TOTAL 7.0 g/dL (6.0-8.3)
[2025-01-18 09:31] LABS: TROPONIN I HIGH SENSITIVITY 58 ng/L (3.0-34)
[2025-01-18 09:33] LABS: CREATININE 10.9 mg/dL (0.6-1.0)
[2025-01-18 10:02] LABS: BG DEOXYHEMOGLOBIN 58.5 % (0.0-5.0)
[2025-01-18] MEDS ORDERED: IOHEXOL-300 100 ML BOTTLE ONE (10:58)
[2025-01-18] MEDS ORDERED: ACETAMINOPHEN 325MG TABLET PO PRN (11:00)
[2025-01-18] MEDS ORDERED: DOCUSATE SODIUM 100MG CAPSULE PO PRN (11:00)
[2025-01-18] MEDS ORDERED: ONDANSETRON HCL 4MG/2ML INJ IV PRN (11:00)
[2025-01-18] MEDS: CLONIDINE 0.1MG TABLET PO NR (11:21)
[2025-01-18 12:00] VITALS: BP 204/81; PULSE 74; RESP 18; TEMP 36.4; O2SAT 96
[2025-01-18 12:01] LABS: HEPATITIS A AB IGM NEGATIVE (Negative)
[2025-01-18 12:02] LABS: HEPATITIS B CORE AB IGM REACTIVE (Negative)
[2025-01-18] MEDS: CLONIDINE 0.1MG TABLET PO PRN (13:07)
[2025-01-18 13:30] VITALS: BP 204/81; PULSE 78; RESP 18; TEMP 36.4736
[2025-01-18] MEDS: HYDRALAZINE HCL 50MG TABLET PO SCH (13:35)
[2025-01-18] MEDS: FAMOTIDINE 20MG/2ML VIAL IV SCH (13:35)
[2025-01-18] MEDS: FUROSEMIDE 40MG/4ML VIAL IVP SCH (13:36)
[2025-01-18 13:37] LABS: HEPATITIS C AB REACTIVE (Pos) (Negative)
[2025-01-18 16:00] VITALS: BP 158/59; PULSE 68; RESP 18; TEMP 36.4; O2SAT 97
[2025-01-18] MEDS ORDERED: DEXTROSE 50% WATER 50ML SYRINGE IV PRN (18:15)
[2025-01-18] MEDS: BLOOD SUGAR DIAGNOSTIC STRIP TEST SCH (21:11)
[2025-01-18] MEDS: INSULIN LISPRO 100 UNITS/ML SUBCUT SCH (21:13)
[2025-01-18] MEDS: ATORVASTATIN CALCIUM 40MG TABLET PO SCH (21:24)
[2025-01-18] MEDS: EPOETIN ALFA-EPBX 4,000 UNITS/ML VIAL SUBCUT SCH (21:28)
[2025-01-18] MEDS: ENOXAPARIN 30MG/0.3ML SYR SUBCUT SCH (21:29)
[2025-01-18 22:06] VITALS: PULSE 64; RESP 16; O2SAT 98
[2025-01-18] MEDS: IPRATROPIUM/ALBUTEROL 0.5-3(2.5)MG/3ML NEB HHN PRN (22:07)
[2025-01-19] VITALS (12 sets, daily range): BP systolic 115–188; BP diastolic 41–85; PULSE 62–85; RESP 17–22; TEMP 36.22512–36.78072; O2SAT 20–99
[2025-01-19] MEDS: HYDRALAZINE 20MG/ML VIAL IV PRN (06:12)
[2025-01-19] MEDS: ASPIRIN 81MG TABLET PO SCH (08:51)
[2025-01-19] MEDS: NITROGLYCERIN OINT 1GM/INCH UDPKT TD SCH (10:43)
[2025-01-19] MEDS: QUETIAPINE FUMARATE 25MG TABLET PO SCH (18:53)
[2025-01-20] VITALS: BP 111/33; PULSE 65; RESP 18; TEMP 36.2; O2SAT 99
[2025-01-20 04:00] VITALS: BP 124/38; PULSE 63; RESP 18; TEMP 35.8; O2SAT 97
[2025-01-20 08:00] VITALS: BP 190/72; PULSE 71; RESP 16; TEMP 36.4; O2SAT 98
[2025-01-20 10:18] LABS: BASOPHILS % 0.4 % (0.0-2.0); EOSINOPHILS % 1.9 % (0.0-5.0); HEMATOCRIT. 22.4 % (36.0-48.0); HEMOGLOBIN. 7.3 g/dL (12.0-16.0); LYMPHOCYTES % 34.7 % (20.0-50.0); MEAN PLATELET VOLUME 8.5 fl (7.4-10.4); MONOCYTES % 11.1 % (2.0-8.0); NEUTROPHILS % 51.9 % (40.0-76.0); PLATELET 250 x1000/uL (130-400); RED BLOOD CELL COUNT 2.41 mill/uL (4.2-5.4); RED CELL DISTRIBUTION WIDTH 15.8 % (11.6-14.6)
[2025-01-20 10:46] LABS: UREA NITROGEN BLOOD 45.0 mg/dL (9-23)
[2025-01-20 10:47] LABS: CREATININE 8.7 mg/dL (0.6-1.0)
[2025-01-20 12:00] VITALS: BP 162/56; PULSE 61; RESP 16; TEMP 36.6; O2SAT 97
[2025-01-20] MEDS: ACETAMINOPHEN 325MG TABLET PO PRN (12:06)
[2025-01-20 16:00] VITALS: BP 158/54; PULSE 65; RESP 16; TEMP 36.7; O2SAT 100
[2025-01-20 20:00] VITALS: BP 185/67; PULSE 78; RESP 16; TEMP 37.3; O2SAT 97
[2025-01-20] MEDS: TRAMADOL 50MG TABLET PO PRN (21:37)
[2025-01-21] VITALS (13 sets, daily range): BP systolic 117–207; BP diastolic 53–87; PULSE 56–76; RESP 16–20; TEMP 36.3–37.2; O2SAT 95–100
[2025-01-21 07:23] LABS: BASOPHILS % 0.6 % (0.0-2.0); EOSINOPHILS % 2.3 % (0.0-5.0); HEMATOCRIT. 24.0 % (36.0-48.0); HEMOGLOBIN. 7.9 g/dL (12.0-16.0); LYMPHOCYTES % 33.5 % (20.0-50.0); MEAN PLATELET VOLUME 8.6 fl (7.4-10.4); MONOCYTES % 10.2 % (2.0-8.0); NEUTROPHILS % 53.4 % (40.0-76.0); PLATELET 271 x1000/uL (130-400); RED BLOOD CELL COUNT 2.51 mill/uL (4.2-5.4); RED CELL DISTRIBUTION WIDTH 15.9 % (11.6-14.6)
[2025-01-21 07:49] LABS: UREA NITROGEN BLOOD 63.0 mg/dL (9-23)
[2025-01-21 08:51] LABS: CREATININE 10.3 mg/dL (0.6-1.0)
[2025-01-21] MEDS: CLONIDINE 0.1MG TABLET PO SCH (22:05)
[2025-01-22] VITALS: BP 99/66; PULSE 76; RESP 16; TEMP 36.7; O2SAT 97
[2025-01-22] MEDS ORDERED: *PATIENT'S OWN MEDICATION STORAGE XX SCH (03:30)
[2025-01-22 04:00] VITALS: BP 208/76; PULSE 71; RESP 17; TEMP 36.4; O2SAT 97
[2025-01-22 08:00] VITALS: BP 198/68; PULSE 75; RESP 16; TEMP 36.7; O2SAT 98
[2025-01-22 12:00] VITALS: BP 183/63; PULSE 51; RESP 18; TEMP 36.7; O2SAT 100
[2025-01-22] MEDS: HYDRALAZINE HCL 100MG TABLET PO SCH (13:32)
[2025-01-22 16:00] VITALS: BP 161/49; PULSE 69; RESP 17; TEMP 36.6; O2SAT 94
[2025-01-22] MEDS: AMLODIPINE 5MG TABLET PO SCH (16:08)
[2025-01-22 20:00] VITALS: BP 139/51; PULSE 60; RESP 16; TEMP 36.6; O2SAT 99
[2025-01-23] VITALS (12 sets, daily range): BP systolic 108–183; BP diastolic 49–63; PULSE 53–79; RESP 16–19; TEMP 36.2–36.9; O2SAT 95–100
[2025-01-23] MEDS: CLONIDINE 0.2MG TABLET PO SCH (00:37)
[2025-01-23 06:44] LABS: BASOPHILS % 0.5 % (0.0-2.0); EOSINOPHILS % 1.9 % (0.0-5.0); HEMATOCRIT. 23.5 % (36.0-48.0); HEMOGLOBIN. 7.9 g/dL (12.0-16.0); LYMPHOCYTES % 29.9 % (20.0-50.0); MEAN PLATELET VOLUME 8.4 fl (7.4-10.4); MONOCYTES % 12.1 % (2.0-8.0); NEUTROPHILS % 55.6 % (40.0-76.0); PLATELET 275 x1000/uL (130-400); RED BLOOD CELL COUNT 2.52 mill/uL (4.2-5.4); RED CELL DISTRIBUTION WIDTH 15.9 % (11.6-14.6)
[2025-01-23 07:25] LABS: UREA NITROGEN BLOOD 47.0 mg/dL (9-23)
[2025-01-23 07:33] LABS: CREATININE 9.6 mg/dL (0.6-1.0)
[2025-01-23] MEDS ORDERED: FAMO-135 MT (10:10)
[2025-01-23] MEDS ORDERED: FURO-151 MT (10:10)
[2025-01-23] MEDS ORDERED: LIP40 PO (10:10)
[2025-01-23] MEDS ORDERED: ASPI-1160 PO (10:10)
== END 2025-01-23 19:00 | disposition home health service (06) | DRG 640 ==
LOC: ER 08:13 → 5WST 09:41 → EDBEDREQ 09:48 → EDBEDREQTM 09:48 → ENRESERV 11:02 → 5WST 01-19 05:53
PROVIDERS: ADMIT Internal Medicine; ATTEND Internal Medicine
PROC: 5A1D70Z Performance of Urinary Filtration, Intermittent, Less than 6 Hours Per Day (ICD-10-PCS; 2025-01-19)
PROC: GZ56ZZZ Individual Psychotherapy, Supportive (ICD-10-PCS; principal; 2025-01-21)
PROC: 5A1D70Z Performance of Urinary Filtration, Intermittent, Less than 6 Hours Per Day (ICD-10-PCS; 2025-01-21)
PROC: 5A1D70Z Performance of Urinary Filtration, Intermittent, Less than 6 Hours Per Day (ICD-10-PCS; 2025-01-23)
DX: E87.70 Fluid overload, unspecified (principal); N18.6 End stage renal disease; I13.2 Hypertensive heart and chronic kidney disease with heart failure and with stage 5 chronic kidney disease, or end stage renal disease; I16.0 Hypertensive urgency; D63.8 Anemia in other chronic diseases classified elsewhere; Z99.2 Dependence on renal dialysis; E11.22 Type 2 diabetes mellitus with diabetic chronic kidney disease; F39 Unspecified mood [affective] disorder; J44.9 Chronic obstructive pulmonary disease, unspecified; I50.9 Heart failure, unspecified; I48.91 Unspecified atrial fibrillation; Z88.8 Allergy status to other drugs, medicaments and biological substances; Z87.891 Personal history of nicotine dependence; Z79.84 Long term (current) use of oral hypoglycemic drugs; Z79.899 Other long term (current) drug therapy
CPT/HCPCS: 36415; 71045; 74177; 80048; 80076; 82375; 82803; 82962; 83735; 83880; 84484; 85025; 86705; 86709; 87340; 90935; 93005; 93970; 94070; 94640; 94760; 97162; 99285; J0360; J0885; J1308; J1650; J1815; J1885; J1938; Q9967